=== PATIENT | male | born 1990 | race Two or more races ===

== ENCOUNTER 2021-06-12 02:56 | Emergency (ER) | payer OTHER ==
[~2021-06-12] VITALS: Ht 175.3 cm; Wt 90.7 kg
[2021-06-12] MEDS ORDERED: KETO10TA2 PO (06:45)
[2021-06-12] MEDS ORDERED: ORPHENADRINE C100 MG PO (06:45)
== END 2021-06-12 06:57 | disposition home or self-care (01) ==
LOC: ER 02:56
DX: M54.59 Other low back pain (principal)